=== PATIENT | male | born 1990 | race Caucasian/White ===

== ENCOUNTER → 2017-07-01 | Outpatient (CLI) | payer BC ==
--- NOTE | 2017-07-01 09:20 | DIAGNOSTIC IMAGING REPORT ---
Neck ULTRASOUND HISTORY: LYMPHADENOPATHY COMPARISON: None. FINDINGS: Within the left parotid gland there are 2 small hypoechoic nodules with the largest measuring 10 x 9 x 6 mm. The larger lesion appears to demonstrate internal color flow. No significant fatty hilum. IMPRESSION: There are 2 small hypoechoic nodules within the left parotid gland with the largest measuring 10 x 9 x 6 mm. These could represent mildly enlarged intraparotid lymph nodes or small parotid lesions such as pleomorphic adenomas. Electronically signed by: Colt Katz M.D. 07/01/2017 9:19 AM Dictated Date/Time: 07/01/2017 9:16 AM
== END | disposition home or self-care (01) ==
LOC: C.ULTRBC 08:15
PROVIDERS: ATTEND Physician Assistant
DX: R59.0 Localized enlarged lymph nodes (principal)

== ENCOUNTER → 2017-07-12 | Outpatient (CLI) | payer BC ==
[~2017-07-12] MED LIST: OPTIRAY 320 IV PRN
--- NOTE | 2017-07-12 16:54 | DIAGNOSTIC IMAGING REPORT ---
CT SOFT TISSUE NECK WITH CT DOSE: 512.33 mGy.cm CLINICAL HISTORY: K11.9 Parotid mass TECHNIQUE: Helical images were acquired during intravenous administration of 116 cc of Optiray 320. A dose lowering technique was utilized adhering to the principles of ALARA. COMPARISON STUDY: Neck ultrasonography dated 07/01/2017 FINDINGS: The visualized portions of the lung apices are unremarkable. No thyroid masses are visualized. The submandibular glands appear symmetric. Corresponding to the palpable abnormality, are 2 hyperdense left parotid nodules, each of which measures 7 mm. Within the contralateral right parotid gland, there is a 4 mm hyperdense nodule. It is not possible to differentiate normal intraparotid lymph nodes from small parotid neoplasms. There are no pathologically enlarged cervical lymph nodes. No necrotic nodes are evident. There are no fluid collections suspicious for abscess. There is no evidence of airway compromise. No mucosal space masses are visualized. IMPRESSION: 1. There are 2 small hyperdense left parotid nodules, each of which measures 7 mm. 2. There is a 4 mm hyperdense nodule within the right parotid gland. 3. It is not possible to differentiate, intraparotid lymph nodes from small parotid neoplasms. Electronically signed by: Ethan Diaz M.D. 07/12/2017 4:52 PM Dictated Date/Time: 07/12/2017 4:48 PM
== END | disposition home or self-care (01) ==
LOC: C.CTS 16:06
DX: K11.9 Disease of salivary gland, unspecified (principal)

== ENCOUNTER → 2017-07-30 | Outpatient (CLI) | payer BC ==
[2017-07-30 11:16] LABS: BLOOD UREA NITROGEN 19 mg/dl (7-18); BUN/CREATININE RATIO 17.1 (10-20); CALCIUM 9.1 mg/dl (8.5-10.1); CARBON DIOXIDE 28 mmol/L (21-32); CHLORIDE 105 mmol/L (98-107); CREATININE 1.13 mg/dl (0.60-1.40); GLUCOSE 80 mg/dl (70-99); SODIUM 138 mmol/L (136-145)
[2017-07-30 11:19] LABS: CHOLESTEROL 150 mg/dl (0-200); CHOLESTEROL/HDL RATIO 2.2; HDL CHOLESTEROL 68 mg/dl; LDL CHOLESTEROL CALCULATED 75 mg/dl; TRIGLYCERIDES 34 mg/dl (0-150); VERY LOW DENSITY LIPOPROT CALC 7 mg/dl
== END | disposition home or self-care (01) ==
LOC: C.LABBC 08:08
PROVIDERS: ATTEND Physician Assistant
DX: Z00.00 Encounter for general adult medical examination without abnormal findings (principal)

== ENCOUNTER → 2018-01-12 | Outpatient (CLI) | payer OTHER ==
--- NOTE | 2018-01-12 09:24 | DIAGNOSTIC IMAGING REPORT ---
SOFT TISS HEAD/NECK-THYROID CLINICAL HISTORY: 27 years-old Male with PAROTID MASS. Follow-up study in a patient with left parotid nodules COMPARISON: CT 07/12/2017, ultrasound 07/01/2017 TECHNIQUE: Multiple real time sonographic images of the parotid were obtained accessing callejas scale appearance and color doppler flow. FINDINGS: Circumscribed ovoid hypoechoic lesion with central echogenic fatty hilum involves the superficial left parotid lobe suggesting a normal intraparotid lymph node, 0.8 x 0.6 x 0.9 cm, not significantly changed from comparison. Additional smaller similar-appearing lesion without discrete fatty hilum identified measures 0.5 x 0.4 x 0.6 cm, also not significantly changed. Lymph node adjacent to the left submandibular gland measures 0.6 x 0.5 x 0.7 cm. Hypoechoic circumscribed lesion of the right parotid measures 0.6 x 0.5 x 0.7 cm, also stable from comparison CT. IMPRESSION: Stable size and appearance of the bilateral hypoechoic parotid lesions favoring physiologic intraglandular lymph nodes. The above report was generated using voice recognition software. It may contain grammatical, syntax or spelling errors. Electronically signed by: Earl Parekh M.D. 01/12/2018 9:22 AM Dictated Date/Time: 01/12/2018 9:18 AM
== END | disposition home or self-care (01) ==
LOC: C.ULTR 08:36
PROVIDERS: ATTEND Physician Assistant
DX: K11.9 Disease of salivary gland, unspecified (principal)